=== PATIENT | female | born 1995 | race Caucasian/White ===

== ENCOUNTER 2019-06-09 15:27 | Emergency (ER) | payer MEDICAID ==
[2019-06-09] MEDS ORDERED: Ibuprofen TAB* 600 MG PO ONE ×2 (16:04)
[2019-06-09] MEDS ORDERED: Acetaminophen TAB* 325 MG PO ONE ×2 (16:04)
--- NOTE | 2019-06-09 16:07 | ED ---
Head Injury - HPI Summary HPI Summary: This pt is a 23 Y/O F presenting to [facility] accompanied by her boyfriend with a CC of a head injury that occurred after hitting the ground from falling off of a horse at noon. She states that she has had episodes of nausea but has not vomited before. After hitting the ground she stated that she had memory loss and confusion. She denies any LOC. She also states that when she originally hit the ground she felt dizzy. She also landed on her R hand which she states hurts more than her head and is rated a 2/10 in severity. She denies any vomiting, shoulder pain, neck pain, fevers, chills, and weakness. She has no alleviating symptoms but stated that pressure causes increased pain. She has no pertinent PMHx and states that she is not on blood thinners. Medication and allergies reviewed. - History Of Current Complaint Chief Complaint: EDFall Stated Complaint: FELL OFF A HORSE,ARM/HEAD INJURY PER PT Time Seen by Provider: 06/09/19 15:56 Hx Obtained From: Patient Mechanism Of Injury: Fall From Height Of: - Pt fell off a horse Onset/Duration: Started Hours Ago - 4 Onset of Pain: Immediate Severity Currently: Mild Severity Initially: Mild Pain Intensity: 2 Pain Scale Used: 0-10 Numeric Location of Head Injury: Frontal Location: Diffuse Aggravating Factor(s): Other: - pressure to her R hand Alleviating Factor(s): Other: - nothing Associated Signs And Symptoms: Confusion, Memory Loss, Nausea - Allergies/Home Medications Allergies/Adverse Reactions: Allergies Allergy/AdvReac Type Severity Reaction Status Date / Time No Known Allergies Allergy Verified 06/09/19 15:37 PMH/Surg Hx/FS Hx/Imm Hx Previously Healthy: Yes Sensory History: Reports: Hx Contacts or Glasses Opthamlomology History: Reports: Hx Contacts or Glasses Infectious Disease History: No Infectious Disease History: Denies: Traveled Outside the [place] in Last 30 Days - Social History Alcohol Use: Occasionally Hx Substance Use: No Substance Use Type: Reports: None Hx Tobacco Use: No Smoking Status (MU): Never Smoked Tobacco Review of Systems Negative: Fever, Chills Positive: Nausea. Negative: Vomiting Musculoskeletal: Negative - shoulder pain, neck pain , Other - R hand pain Neurological: Other - POSITIVE: dizzy, confusion, memory loss Negative: Weakness All Other Systems Reviewed And Are Negative: Yes Physical Exam - Summary Physical Exam Summary: Constitutional: Well-developed, Well-nourished, Alert. (-) Distressed Skin: Warm, Dry HENT: Normocephalic; Atraumatic Eyes: Conjunctiva normal Neck: Musculoskeletal ROM normal neck. (-) JVD, (-) Stridor, (-) Tracheal deviation Cardio: Rhythm regular, rate normal, Heart sounds normal; Intact distal pulses; The pedal pulses are 2+ and symmetric. Radial pulses are 2+ and symmetric. (-) Murmur Pulmonary/Chest wall: Effort normal. (-) Respiratory distress, (-) Wheezes, (-) Rales Abd: Soft, (-) tenderness, (-) Distension, (-) Guarding, (-) Rebound Musculoskeletal: (-) Edema, Tenderness at the base of the thumb at the reece surface Tenderness on the dorsal palm Lymph: (-) Cervical adenopathy Neuro: Alert, Oriented x3 Psych: Mood and affect Normal Triage Information Reviewed: Yes Vital Signs On Initial Exam: Initial Vitals Temp Pulse Resp BP Pulse Ox 98.7 F 99 16 132/91 99 06/09/19 15:33 06/09/19 15:33 06/09/19 15:33 06/09/19 15:33 06/09/19 15:33 Vital Signs Reviewed: Yes Diagnostics - Vital Signs Vital Signs Temp Pulse Resp BP Pulse Ox 06/09/19 15:33 98.7 F 99 16 132/91 99 - Laboratory Lab Statement: Any lab studies that have been ordered have been reviewed, and results considered in the medical decision making process. - Radiology R hand X-Ray Radiology Interpretation Completed By: Radiologist Summary of Radiographic Findings: Normal R hand radiography. ED physician has reviewed this report. Head Injury Course/Dx Course Of Treatment: Patient is here for hours after falling off a horse. Patient did hit her head but was wearing a helmet. Patient denied a CT head per ankle decision making Bell. Patient had negative x-ray of her right hand. Patient had no other injuries. Patient is likely suffering from a concussion and hand strain. - Diagnoses Provider Diagnoses: Sprain of right hand, Brain concussion Discharge ED - Sign-Out/Discharge Documenting (check all that apply): Patient Departure - discharge Patient Received Moderate/Deep Sedation with Procedure: No - Discharge Plan Condition: Stable Disposition: HOME Patient Education Materials: Concussion (ED), Hand Sprain (ED) Referrals: [facility] [Outside] - 2 Days Additional Instructions: PLEASE RETURN TO THE EMERGENCY DEPARTMENT FOR ANY NEW OR WORSENING SYMPTOMS. Please follow up with the [facility] in 1-3 days. You have been diagnosed with a concussion. Please due not watch any TV, look at your phone, read, or play video games for the next 2 days. - Billing Disposition and Condition Condition: STABLE Disposition: Home - Attestation Statements Document Initiated by Dennis: Yes Documenting Scribe: Ajit Soto Provider For Whom Dennis is Documenting (Include Credential): Baldo Pop MD Scribe Attestation: Ajit Haynes, scribed for Baldo Pop MD on 06/09/19 at 2141. Scribe Documentation Reviewed: Yes Provider Attestation: The documentation as recorded by the Ajit doshi accurately reflects the service I personally performed and the decisions made by , Baldo Pop MD Status of Scribe Document: Viewed
[2019-06-09 17:16] VITALS: BP 128/86
== END 2019-06-09 17:15 | disposition home or self-care (01) ==
LOC: ED 15:27
DX: S63.91XA Sprain of unspecified part of right wrist and hand, initial encounter (principal); V80.010A Animal-rider injured by fall from or being thrown from horse in noncollision accident, initial encounter; Y92.9 Unspecified place or not applicable; S06.0X9A Concussion with loss of consciousness of unspecified duration, initial encounter
CPT/HCPCS: 99282; A9270-GY